=== PATIENT | female | born 1975 | race Caucasian/White ===

== ENCOUNTER 2017-09-02 20:11 | Emergency (ER) | payer SELFPAY ==
[~2017-09-02] VITALS: Ht 154.9 cm; Wt 91.6 kg
[2017-09-02 20:22] VITALS: Ht 154.9 cm; Wt 91.6 kg
[2017-09-02 23:19] LABS: microscopic required? NO
[2017-09-02 23:28] LABS: BASOPHIL % 1.9 % (0-2); PLATELET COUNT 380 x10^3mcL (130-400)
[2017-09-02 23:31] LABS: RED CELL DISTRIBUTION WIDTH 16.4 % (11.5-14.5)
[2017-09-02 23:39] LABS: UA SPECIFIC GRAVITY 1.025 (1.005-1.035); urine erythrocyte NEGATIVE (NEGATIVE)
[2017-09-02 23:51] LABS: CALCIUM 7.6 mg/dL (8.5-10.1); CHLORIDE SERUM 114 mmol/L (98-107); CREATININE SERUM 0.6 mg/dL (0.6-1.0); GFR1 > 60 mL/min; GLUCOSE SERUM 84 mg/dL (74-106); POTASSIUM SERUM 3.9 mmol/L (3.5-5.1); SODIUM SERUM 139 mmol/L (136-145)
[2017-09-02 23:56] LABS: ALBUMIN 3.1 g/dL (3.4-5.0); ALKALINE PHOSPHATASE 77 U/L (46-116); ALT/SGPT 11 U/L (14-59); AMYLASE 39 U/L (25-115); AST/SGOT 11 U/L (15-37); BILIRUBIN TOTAL 0.1 mg/dL (0.20-1.00); LIPASE 249 IU/L (73-393); TOTAL PROTEIN, SERUM 6.9 g/dL (6.4-8.2)
[2017-09-03 03:40] VITALS: BP 106/62
== END 2017-09-03 03:40 | disposition home or self-care (01) ==
LOC: ED 20:11
PROVIDERS: Emergency Medicine
DX: K80.20 Calculus of gallbladder without cholecystitis without obstruction (principal); D64.9 Anemia, unspecified; E11.9 Type 2 diabetes mellitus without complications
CPT/HCPCS: 83880; J1885; J2270; J2405; J7030; Q0092